=== PATIENT | male | born 1950 | race Caucasian/White ===

== ENCOUNTER → 2017-12-08 | Outpatient (CLI) | payer MEDICARE, MEDICAID | END | disposition home or self-care (01) | LOC: LAB 20:42 | PROVIDERS: ATTEND Internal Medicine | DX: L03.114 Cellulitis of left upper limb (principal) | CPT/HCPCS: 87070; 87077; 87186 ==

== ENCOUNTER 2018-05-29 23:21 | Emergency (ER) | payer MEDICARE, MEDICAID ==
[~2018-05-29] VITALS: Ht 180.3 cm; Wt 127.0 kg
[2018-05-30 00:55] LABS: BASOPHIL # 0.1 10^3/uL (0.0-0.1); BASOPHIL % 0.4 % (0.0-0.2); CARBON DIOXIDE 27.2 mmol/L (20.0-32); EOSINOPHIL # 0.4 10^3/uL (0.0-0.2); EOSINOPHIL % 2.7 % (0.0-5.0); HEMOGLOBIN 14.2 g/dL (13.9-16.3); LYMPHOCYTES # 2.5 10^3/uL (1.0-4.8); LYMPHOCYTES % 15.7 % (24.0-44.0); MEAN CELL HGB 29.2 pg (26-34); MEAN CELL HGB CONCENTRATION 33.6 g/dL (33-37); MEAN CORP VOLUME 86.7 fL (78-100); MEAN PLATELET VOLUME 10.5 fL (7.8-11.0); MONOCYTES # 1.3 10^3/uL (0.3-0.8); NEUTROPHIL # 11.7 10^3/uL (1.8-7.7); NEUTROPHILS % 73.2 % (41.0-85.0); PLATELET COUNT 258 10^3/uL (150-400); RED CELL DISTRIBUTION WIDTH 13.4 % (11.5-14.5)
[2018-05-30 01:01] VITALS: BP 159/79
--- NOTE | 2018-05-30 01:13 | DIREP ---
PROCEDURE:CT HEAD OR BRAIN W/O CONTRAST COMPARISON:None. INDICATIONS:head trauma TECHNIQUE:CT images were created without intravenous contrast. FINDINGS: VENTRICLES:There is mild prominence of the ventricles and cortical sulci consistent with age related involutional changes. CEREBRUM:Normal cerebral morphology with appropriate cox white matter differentiation. CEREBELLUM:Negative. BRAINSTEM:Negative. BASAL CISTERNS:Negative. HEMORRHAGE:No MASS LESION:No ACUTE INFARCT:No SKULL:Normal. SINUSES:Normal. OTHER:None CONCLUSION: 1. Mild ventriculomegaly, consistent with atrophy no acute Dictated by: Wilbert Glass Jr. on 05/30/2018 at 01:11 AM
--- NOTE | 2018-05-30 02:27 | NUR ---
URINE URINE OBTAINED VIA CLEAN CATCH INTO URINAL; SPECIMEN SENT TO LAB.
[2018-05-30 02:37] LABS: BILIRUBIN,URINE NEGATIVE (NEGATIVE); UROBILINOGEN,URINE NORMAL (NEGATIVE)
[2018-05-30 02:49] LABS: APPEARANCE,URINE CLEAR (CLEAR); UA COLOR YELLOW (YELLOW)
[2018-05-30 03:28] VITALS: BP 157/73
--- NOTE | 2018-05-30 03:40 | ER.PDOC ---
General Chief Complaint: Trauma Stated Complaint: FALL,HEAD INJURY Time seen by MD: 02:00 Source: patient Exam Limitations: no limitations History of Present Illness Initial Comments Patient presenting after falling from bead unto tile floor. Patient denies LOC. No confusion. He is alert. Small hematoma of occipital scalp. Occurred: just prior to arrival Where: home Severity: mild Location: occipital Method of Injury: fell Allergies: Coded Allergies: No Known Allergies (Unverified , 05/30/18) Past Medical History Medical History: diabetes, high cholesterol, hypertension, thyroid disease, other (schizoaffective disorder, dementia) Surgical History: knee, tonsillectomy Social History Smoking: non-smoker Alcohol Use: none Drug Use: none Review of Systems Constitutional: denies chills, denies fever Eyes: denies decreased acuity, denies pain, denies photophobia; previous injury Ears, Nose, Mouth, Throat: denies ear pain, denies nose pain, denies nose discharge, denies epistaxis Respiratory: denies cough, denies shortness of breath, denies wheezing Cardiovascular: denies chest pain, denies edema, denies palpitations Gastrointestinal: denies abdominal pain, denies nausea, denies vomiting Genitourinary: denies hematuria, denies pain Musculoskeletal: denies back pain, denies joint pain, denies joint swelling, denies muscle pain, denies muscle stiffness, denies neck pain Skin: denies change in color, denies lesions, denies rash Psychiatric/Neurological: denies anxiety, denies depressed, denies emotional problems Endocrine: no symptoms reported Hematologic/Lymphatic: no symptoms reported All Other Systems: Reviewed and Negative Physical Exam General Appearance: Alert, No Apparent Distress Head: Swelling, Tenderness, Other (hematoma of occipital scalp) Eye: PERRL, EOMI, No nystagmus ENT: Nml external inspection, Pharynx nml Neck: non-tender, painless ROM, trachea midline Cardiovascular/Respiratory: Regular Rate, Rhythm, No M/R/G, Normal Peripheral Pulses, No JVD, Normal Breath Sounds, No Respiratory Distress Gastrointestinal: Normal Bowel Sounds, Non Tender, Soft Back: Normal Inspection, No CVA Tenderness Extremities: Normal Range of Motion, Non-Tender, Normal Inspection NEURO/PSYCH: Alert, Oriented x3, Cooperative, Interactive, Mood/affect nml Cranial Nerves: Normal Hearing, Normal Speech, PERRL Motor/Sensory: No Motor Deficit, No Sensory Deficit Skin: Normal Color, Warm/Dry Results/Orders Results/Orders Laboratory Tests Test 05/30/18 00:35 05/30/18 02:33 White Blood Count 16.0 10^3/uL (4.5-11.0) Red Blood Count 4.87 10^6/uL (4.50-5.90) Hemoglobin 14.2 g/dL (13.9-16.3) Hematocrit 42.2 % (37.0-53.0) Mean Corpuscular Volume 86.7 fL (78-100) Mean Corpuscular Hemoglobin 29.2 pg (26-34) Mean Corpuscular Hemoglobin Concent 33.6 g/dL (33-37) Red Cell Distribution Width 13.4 % (11.5-14.5) Platelet Count 258 10^3/uL (150-400) Mean Platelet Volume 10.5 fL (7.8-11.0) Neutrophils (%) (Auto) 73.2 % (41.0-85.0) Lymphocytes (%) (Auto) 15.7 % (24.0-44.0) Monocytes (%) (Auto) 8.0 % (5.0-12.0) Neutrophils # (Auto) 11.7 10^3/uL (1.8-7.7) Lymphocytes # (Auto) 2.5 10^3/uL (1.0-4.8) Monocytes # (Auto) 1.3 10^3/uL (0.3-0.8) Eosinophils % 2.7 % (0.0-5.0) Basophils % 0.4 % (0.0-0.2) Basophils # 0.1 10^3/uL (0.0-0.1) Eosinophil Count 0.4 10^3/uL (0.0-0.2) Sodium Level 141 mmol/L (132-145) Potassium Level 4.0 mmol/L (3.6-5.2) Chloride Level 104.0 mmol/L (96-109) Carbon Dioxide Level 27.2 mmol/L (20.0-32) Glucose Level 188 mg/dL (70-110) Blood Urea Nitrogen 17 mg/dL (7-18) Creatinine 1.47 mg/dL (0.59-1.40) Calcium Level 9.0 mg/dL (8.4-10.5) Anion Gap 13.8 Estimated GFR () 58.0 (>/=60) BUN/Creatinine Ratio 11.0 Urine Collection Type UNKNOWN Urine Color YELLOW (YELLOW) Urine Appearance CLEAR (CLEAR) Urine Bilirubin NEGATIVE MG/DL (NEGATIVE) Urine Ketones NEGATIVE (NEGATIVE) Urine Specific [place] 1.020 (1.005-1.035) Urine pH 6 (5.0-6.0) Urine Protein 500 mg/dL (NEGATIVE) Urine Urobilinogen NORMAL (NEGATIVE) Urine Nitrate NEGATIVE (NEGATAIVE) Urine Leukocyte Esterase NEGATIVE (NEGATIVE) Urine Blood NEGATIVE (NEGATIVE) Urine RBC 0-2 RBC/HPF (NONE SEEN) Urine WBC 0-2 WBC/HPF (0-2) Urine Squamous Epithelial Cells RARE #/HPF (FEW) Urine Bacteria NONE SEEN (NONE SEEN) Urine Hyaline Casts 0-1 (NONE SEEN) Urine Fine Granular Casts 0-1 Urine Glucose NORMAL (NEGATIVE) EKG/XRAY/CT/US CT Comments: CT head negative for acute pathology. Departure Time of Disposition: 03:45 Disposition: 03 DISCH/XFER TO SNF Impression: Primary Impression: Head contusion Condition: Stable Referrals: PCP,UNKNOWN (PCP) PRIMARY CARE PROVIDER Comments Patient has head contusion. Neuro exam benign. CT head negative for acute pathology. Labs reviewed. Leukocytosis present but no etiology other than acute injury. Patient stable for d/c back to SNF. Duration or Time Spent with Pa: 30 minutes ALVARO EVANGELISTA MD May 30, 2018 03:40
[2018-05-30 03:53] VITALS: BP 157/73
== END 2018-05-30 03:50 ==
LOC: ER 23:21
DX: S00.03XA Contusion of scalp, initial encounter (principal); E11.9 Type 2 diabetes mellitus without complications; E78.00 Pure hypercholesterolemia, unspecified; I10 Essential (primary) hypertension; E07.9 Disorder of thyroid, unspecified; W17.89XA Other fall from one level to another, initial encounter; Y93.89 Activity, other specified; Y92.098 Other place in other non-institutional residence as the place of occurrence of the external cause; Y99.8 Other external cause status
CPT/HCPCS: 36415; 70450; 80048; 81000; 85025; 99285

== ENCOUNTER → 2019-12-25 | Outpatient (CLI) | payer MEDICARE, MEDICAID ==
[2019-12-25 13:15] LABS: MEAN CORP HGB 29.7 pg (26-34); RED CELL DISTRIBUTION WIDTH 13.2 % (11.5-14.5)
[2019-12-25 13:39] LABS: CALCIUM 8.2 mg/dL (8.4-10.5); CARBON DIOXIDE 25.5 mmol/L (20.0-32)
== END | disposition home or self-care (01) ==
LOC: NPLAB 12:37
PROVIDERS: ATTEND Internal Medicine
DX: E11.9 Type 2 diabetes mellitus without complications (principal); I10 Essential (primary) hypertension
CPT/HCPCS: 36415; 80053; 83036; 85027; 87070

== ENCOUNTER → 2020-08-04 | Outpatient (CLI) | payer MEDICARE, MEDICAID | END | disposition home or self-care (01) | LOC: NPLAB 18:30 | PROVIDERS: ATTEND Internal Medicine | DX: L03.115 Cellulitis of right lower limb (principal) | CPT/HCPCS: 87070 ==